=== PATIENT | male | born 1990 | race Two or more races ===

== ENCOUNTER 2016-08-18 16:39 | Emergency (ER) | payer SELFPAY ==
[~2016-08-18] VITALS: Ht 172.7 cm; Wt 75.7 kg
--- NOTE | 2016-08-18 16:50 | NUR ---
pt [facility] [address] [facility] to [facility] bed 10. 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 placed on monitor. stable vitals. awaiting md fay.
--- NOTE | 2016-08-18 16:55 | NUR ---
iv line started blood drawn and sent to lab.
[2016-08-18] MEDS ORDERED: IV SET PRIMARY 1 EA INFUS.SET MC ONE (16:56)
[2016-08-18] MEDS ORDERED: IV NS 0.9% 1,000 ML ONE (16:56)
[2016-08-18 17:02] LABS: BASOPHILS # (AUTO) 0.1 /CMM (0.0-0.2); BASOPHILS % (AUTO) 0.9 % (0.0-2.0); EOSINOPHILS # (AUTO) 0.2 /CMM (0.0-0.7); EOSINOPHILS % (AUTO) 3.1 % (0.0-6.0); HEMATOCRIT 44 % (39-51); LYMPHOCYTES # (AUTO) 2.7 /CMM (0.8-4.8); LYMPHOCYTES % (AUTO) 38.9 % (20.0-44.0); MEAN CORPUSCULAR HEMOGLOBIN 32 PG (26.0-33.0); MEAN CORPUSCULAR HGB CONC 34 g/dl (31.0-36.0); MEAN CORPUSCULAR VOLUME 95 fL (80-96); MONOCYTES # (AUTO) 0.4 /CMM (0.1-1.30); MONOCYTES % (AUTO) 5.7 % (2.0-12.0); NEUTROPHILS # (AUTO) 3.6 /CMM (1.8-8.9); NEUTROPHILS % (AUTO) 51.4 % (43.0-81.0); PLATELET COUNT (AUTO) 346 /CMM (150-450); RDW COEFFICIENT OF VARIATION 11.8 (11.5-15.0); RED BLOOD CELL COUNT(AUTO) 4.65 MIL/uL (4.5-6.0)
[2016-08-18] MEDS: IV NS 0.9% 1,000 ML BAG IV ONE (17:02)
[2016-08-18 17:15] LABS: ALBUMIN 3.6 g/dL (3.4-5.0); BILIRUBIN,DIRECT 0.1 mg/dL (0.0-0.2); BILIRUBIN,TOTAL 0.5 mg/dL (0.2-1.0); CALCIUM, SERUM 8.5 mg/dL (8.5-10.1); POTASSIUM 3.7 mmol/L (3.5-5.1); TOTAL PROTEIN, SERUM 6.8 g/dL (6.4-8.2)
[2016-08-18 17:23] LABS: SALICYLATE 1.6 mg/dL (2.8-20.0)
--- NOTE | 2016-08-18 20:38 | NUR ---
pt awake. verbally responsive. oral fluids provided.
--- NOTE | 2016-08-18 21:27 | NUR ---
pt is awake. aaox3, ambulatory w/ steady gait. Patient discharged to home in stable condition. Written and verbal after care instructions given. Patient verbalizes understanding of instruction.IV removed. Catheter intact and site benign. Pressure and 4x4 applied to site. No bleeding noted.
[2016-08-18 21:28] VITALS: BP 132/80
== END 2016-08-18 21:29 | disposition home or self-care (01) ==
LOC: ER 16:42
DX: R45.1 Restlessness and agitation (principal); F10.129 Alcohol abuse with intoxication, unspecified
CPT/HCPCS: 36415; 80048-TC; 80076-TC; 85025-TC; A4606; G0480; G6039-TC; J7030; Z7610